=== PATIENT | male | born 1990 | race Two or more races ===

== ENCOUNTER 2022-07-07 07:01 | Emergency (ER) | payer MEDICAID ==
[2022-07-07] MEDS ORDERED: Sodium Chloride 0.9% 10 ML Syringe FLUSH PRN (07:26)
[2022-07-07] MEDS ORDERED: Sodium Chloride 0.9% 1,000 ML IV ONE (07:26)
[2022-07-07] MEDS ORDERED: Ondansetron 4 MG/2 ML SDV IVPUSH ONE (07:26)
[2022-07-07 07:45] LABS: BASOPHILS ABSOLUTE AUTO 0.08 K/mm3 (0.01-0.08); BASOPHILS PERCENT AUTO 1.2 % (0.1-1.2); EOSINOPHILS ABSOLUTE AUTO 0.26 K/mm3 (0.04-0.54); EOSINOPHILS PERCENT AUTO 3.9 (0.8-7.0); HEMATOCRIT 46.9 % (40.1-51.0); HEMOGLOBIN 15.5 gm/dl (13.7-17.5); IMMATURE GRAN ABSOLUTE AUTO 0.04 K/mm3 (0.00-0.10); IMMATURE GRAN PERCENT AUTO 0.6 % (<=1.0); LYMPHOCYTES ABSOLUTE AUTO 2.36 K/mm3 (1.32-3.57); MEAN CORPUSCULAR HEMOGLOBIN 31.5 pg (25.7-32.2); MEAN CORPUSCULAR VOLUME 95.3 fl (79.0-92.2); MEAN PLATELET VOLUME 9.2 fl (9.4-12.3); MONOCYTES ABSOLUTE AUTO 0.64 K/mm3 (0.30-0.82); MONOCYTES PERCENT AUTO 9.5 % (5.3-12.2); NEUTROPHILS ABSOLUTE AUTO 3.37 K/mm3 (1.78-5.38); NEUTROPHILS PERCENT AUTO 49.8 % (34.0-67.9); PLATELET COUNT,PLT 304 K/mm3 (163-337); RED BLOOD CELL COUNT 4.92 M/mm3 (4.63-6.08); WHITE BLOOD CELL COUNT,WBC 6.75 K/mm3 (4.23-9.07)
[2022-07-07 07:56] LABS: A/G RATIO 1.2 (1-2); ALANINE AMINOTRANSFERASE,ALT 26 U/L (16-63); ALBUMIN 3.7 g/dl (3.4-5.0); ALKALINE PHOSPHATASE 86 U/L (46-116); ANION GAP 11.3 (5-15); ASPARTATE AMNIOTRANSFERASE,AST 23 U/L (15-37); BILIRUBIN TOTAL 0.2 mg/dL (0.2-1.0); BLOOD UREA NITROGEN,BUN 14 mg/dL (7-18); C-REACTIVE PROTEIN <0.2 mg/dL (<1.0); CALCIUM 8.3 mg/dL (8.5-10.1); CARBON DIOXIDE,CO2 24 mEq/L (21-32); CHLORIDE,CL 105 mEq/L (98-107); EST CRCL DRUG DOSING (CG) 105.45 mL/min; ESTIMATED GFR 104 mL/min (>60); GLUCOSE RANDOM 98 mg/dL (70-99); POTASSIUM,K 4.3 mEq/L (3.5-5.1); PROTEIN TOTAL,TP 6.9 g/dl (6.4-8.2); SODIUM,NA 136 mEq/L (136-145)
[2022-07-07 09:44] VITALS: BP 113/71; PULSE 52
[2022-07-07 10:08] LABS: APPEARANCE,URINE CLEAR (Clear); BILIRUBIN,URINE NEGATIVE (Negative); COLOR,URINE YELLOW (Yellow); GLUCOSE,URINE NEGATIVE (Negative); KETONES,URINE NEGATIVE (Negative); LEUKOCYTE ESTERASE,URINE NEGATIVE (Negative); NITRITE,URINE NEGATIVE (Negative); OCCULT BLOOD,URINE NEGATIVE (Negative); PROTEIN,URINE NEGATIVE (Negative); UROBILINOGEN,URINE 0.2 (0.2-1.0)
== END 2022-07-07 09:43 | disposition home or self-care (01) ==
LOC: JD.ED 07:01
DX: K52.9 Noninfective gastroenteritis and colitis, unspecified (principal); E86.0 Dehydration; R11.2 Nausea with vomiting, unspecified; Z91.030 Bee allergy status; Z72.0 Tobacco use
CPT/HCPCS: 36415; 80053; 81003; 85025; 86140; 96361; 96374; 99284; J2405; J3490; J7030

== ENCOUNTER 2022-09-21 01:23 | Emergency (ER) | payer MEDICAID ==
[2022-09-21] MEDS ORDERED: Proparacaine 0.5% Ophth Soln 15 ML Bottle EYEBOTH STA (02:30)
[2022-09-21] MEDS ORDERED: Fluorescein 1 MG Ophth Strip EYEBOTH STA (02:31)
[2022-09-21] MEDS ORDERED: Erythromycin Base 0.5% Ophth Oint 1 GM Tube EYEBOTH STA (02:31)
[2022-09-21] MEDS ORDERED: Fluorescein 1 MG Ophth Strip ONE (02:34)
[2022-09-21] MEDS ORDERED: Erythromycin Base 0.5% Ophth Oint 1 GM Tube ONE (02:35)
[2022-09-21 02:56] VITALS: BP 130/84
[2022-09-21 02:57] VITALS: PULSE 70
== END 2022-09-21 03:03 | disposition home or self-care (01) ==
LOC: JD.ED 01:23
DX: H16.133 Photokeratitis, bilateral (principal); F17.210 Nicotine dependence, cigarettes, uncomplicated; Z91.030 Bee allergy status
CPT/HCPCS: 99283; A9270; J3490